=== PATIENT | male | born 1965 | race Caucasian/White ===

== ENCOUNTER 2018-10-03 12:08 | Day surgery (SDC) | payer OTHER ==
[~2018-10-03] VITALS: Ht 182.9 cm; Wt 118.6 kg
[~2018-10-03 12:08] MED LIST: KLONOPIN 1MG1 MG PO; LEXAPRO20 MG PO; LIPITOR 40MG TA40 MG PO; MULTIPLE VITAMI1 CAP PO; NORCO 325 MG-51 TAB PO; TYLENOL 500MG500 MG PO; XANAX 1MG1 MG PO
[2018-10-03 12:27] VITALS: BP 161/105; PULSE 79; TEMP 97.6
[2018-10-03 14:25] VITALS: BP 118/83; PULSE 71; TEMP 97.1
--- NOTE | 2018-10-03 14:25 | NUR ---
The patient is wheeled to [place] [facility] via cart by Brigette SINGH. The patient ambulates to the chair with a steady gait and nurse standby assist. The patient's vital signs are stable. Report is obtained. The patient requests a muffin and coffee which is brought to him at this time. The call light is within reach and the patient's is at the bedside. Will continue to monitor.
[2018-10-03 14:40] VITALS: BP 123/81; PULSE 78
--- NOTE | 2018-10-03 14:40 | NUR ---
The patient's vital signs are stable. The patient tolerated the muffin and coffee and deny any complaints or concerns. The patient has talked to Dr. Bishop and states he is ready to be discharged. The discharge instructions will be reviewed with the patient and his .
--- NOTE | 2018-10-03 14:50 | NUR ---
The discharge instructions are reviewed with the patient and his and all questions are answered. The IV is removed and the tip is intact and a dressing is applied. The patient changes into his personal clothes to be discharged home.
--- NOTE | 2018-10-03 14:50 | NUR ---
The patient ambulates to the patient entrance with a steady gait with his who is an RN at [facility]. The patient is sent home with his discharge instructions and education packet.
[2018-10-03 21:05] VITALS: BP 125/89; PULSE 76
== END 2018-10-03 14:50 | disposition home or self-care (01) ==
LOC: SDCO 12:08
DX: Z12.11 Encounter for screening for malignant neoplasm of colon (principal); D12.0 Benign neoplasm of cecum; K63.5 Polyp of colon; K64.8 Other hemorrhoids; E78.00 Pure hypercholesterolemia, unspecified
CPT/HCPCS: J2250; J2405; J3010; J7030

== ENCOUNTER 2020-06-08 12:24 | Emergency (ER) | payer OTHER ==
[~2020-06-08] VITALS: Ht 182.9 cm; Wt 120.5 kg
[2020-06-08 12:40] VITALS: BP 136/83; TEMP 97.8
[2020-06-08 14:01] LABS: BASO # 0.1 (0.0-0.2); BASO % 0.3 % (0.0-2.0); EOS # 0.3 (0.0-0.7); EOS % 1.4 % (0-4.0); GRAN # 14.1 (1.4-6.5); GRAN % 75.4 % (42.2-75.2); HEMATOCRIT 44.4 % (42.0-52.0); HEMOGLOBIN 15.2 g/dl (13.5-18.0); LYMPH # 3.1 (1.2-3.4); LYMPH % 16.6 % (20.0-51.0); MEAN CELL VOLUME 87 fl (80.0-100.0); MEAN CORPUSCULAR HEMOGLOBIN 30 pg (27.0-31.0); MEAN CORPUSCULAR HGB CONC 34 g/dl (33.0-37.0); MEAN PLATELET VOLUME 8.8 fl (7.4-10.4); MONO # 1.1 (0.1-0.6); MONO % 5.9 % (1.7-9.3); PLATELET COUNT 486 K/mm3 (130-400); RED BLOOD COUNT 5.09 M/mm3 (4.20-5.60); REDCELL DISTRIBUTION WIDTH-CV 13.6 % (11.5-14.5)
[2020-06-08 14:18] LABS: ALBUMIN 4.7 gm/dL (3.5-5.0); BILIRUBIN,TOTAL 0.5 mg/dL (0.0-1.0); C-REACTIVE PROTEIN 2.8 mg/dL (0.0-0.9); CALCIUM 9.6 mg/dL (8.4-10.2); CREATININE, serum 1.13 (0.66-1.25); POTASSIUM 4.4 mmol/L (3.4-5.0); TOTAL PROTEIN 7.7 gm/dL (6.4-8.2)
[2020-06-08] MEDS ORDERED: PERCOCET 325 MG1 TA2 PO (17:00)
[2020-06-08 17:09] VITALS: PULSE 94
== END 2020-06-08 17:09 | disposition home or self-care (01) ==
LOC: COL.ER 12:24
PROVIDERS: Physician Assistant
DX: K61.1 Rectal abscess (principal); E78.5 Hyperlipidemia, unspecified; F41.9 Anxiety disorder, unspecified; F32.9 Major depressive disorder, single episode, unspecified; Z98.890 Other specified postprocedural states
CPT/HCPCS: J1170; J2405; J2543; J7030; Q9967

== ENCOUNTER 2020-07-05 10:09 | Day surgery (SDC) | payer OTHER ==
[~2020-07-05] VITALS: Ht 182.9 cm; Wt 116.2 kg
[~2020-07-05 10:09] MED LIST changes: +AMOXICILLIN 8751 TAB PO; +PERCOCET 325 MG1 TA2 PO
[2020-07-05] MEDS ORDERED: PERCOCET 325 MG1 TA2 PO ×2 (11:02→14:31)
[2020-07-05 11:21] VITALS: BP 135/83; PULSE 75; TEMP 98.1
[2020-07-05 14:30] VITALS: BP 127/78; PULSE 87; TEMP 98
[2020-07-05] MEDS ORDERED: AMOXICILLIN 8751 TAB PO (14:30)
--- NOTE | 2020-07-05 14:30 | NUR ---
Pt to [facility] via cart from PACU. Pt awake and alert. Denies pain or nausea. Mesh underwear and 4x4's to rectum are clean, dry, and intact. Sprite and pudding given per pt request. Will continue to monitor. Call light within reach.
[2020-07-05 14:45] VITALS: BP 134/81; PULSE 83
--- NOTE | 2020-07-05 14:45 | NUR ---
Pt continues to rest. Tolerating food and fluids without difficulties. Denies pain. Will continue to monitor.
[2020-07-05 15:00] VITALS: BP 105/60; PULSE 76
--- NOTE | 2020-07-05 15:00 | NUR ---
Discharge instructions reviewed. Pt voices understanding. IV site discontinued with all parts intact. Pt up to dress. Call light within reach.
--- NOTE | 2020-07-05 15:10 | NUR ---
Pt escorted to private car via wheel chair. Pt accompanied home by his .
== END 2020-07-05 15:10 | disposition home or self-care (01) ==
LOC: SDCO 10:09
DX: K61.0 Anal abscess (principal); M19.90 Unspecified osteoarthritis, unspecified site; Z20.828 Contact with and (suspected) exposure to other viral communicable diseases; Z79.01 Long term (current) use of anticoagulants; Z79.899 Other long term (current) drug therapy
CPT/HCPCS: J0690; J1100; J1885; J2405; J2704; J3010; J7120; Q9968

== ENCOUNTER 2022-03-13 05:12 | Day surgery (SDC) | payer OTHER ==
[~2022-03-13] VITALS: Ht 180.3 cm; Wt 118.3 kg
[2022-03-13 05:51] VITALS: BP 133/87; PULSE 76; TEMP 96.2
[2022-03-13 08:10] VITALS: BP 123/99; PULSE 62; TEMP 97.3
[2022-03-13 08:25] VITALS: BP 132/80; PULSE 65
--- NOTE | 2022-03-13 08:30 | NUR ---
0810 - PT arrives drowsy but oriented. Ambulates 1:1 from cart to chair. Monitors applied and VSS. PT denies nausea and pain. Warm blakets provided. Hot coffee, ice water and buttered toast w/ jam provided per request. Non-slip socks remain on. Verbal report obtained from Karen SINGH. PT oriented to room and call madrid, within reach. 0825 - VSS. PT continues to deny nausea and pain. Expressed desire to be discharged. PT is watching TV and has finished snack, continues to drink. Call [facility] is in use for TV controls.
[2022-03-13 08:40] VITALS: BP 142/91; PULSE 66
--- NOTE | 2022-03-13 08:40 | NUR ---
VSS. Call [facility]rid remains within reach. is speaking with the PT.
--- NOTE | 2022-03-13 08:49 | NUR ---
0845 - DC instructions and educational material reviewed with the PT, who verbalized understanding and signed the related paperwork. Questions answered to PT satisfaction. IV discontinued. Catheter tip intact. Pressure bandage applied; no redness or swelling noted. PT denied needing assistance changing into personal clothes; call madrid remains within reach if needed.
--- NOTE | 2022-03-13 09:23 | NUR ---
PT dismissed from endo via wheelchair by Adriana SINGH; PT has DC packet and personal belongings in hand and was transferred into the care of a friend, who is present to drive private car.
== END 2022-03-13 09:20 | disposition home or self-care (01) ==
LOC: SDCO 05:12
DX: Z12.11 Encounter for screening for malignant neoplasm of colon (principal); D12.5 Benign neoplasm of sigmoid colon; D12.8 Benign neoplasm of rectum; K63.5 Polyp of colon; K64.1 Second degree hemorrhoids; K64.4 Residual hemorrhoidal skin tags; Z87.891 Personal history of nicotine dependence; Z28.310 Unvaccinated for COVID-19; Z28.9 Immunization not carried out for unspecified reason
CPT/HCPCS: J2704; J7120